=== PATIENT | male | born 1950 | race Hispanic/Latino ===

== ENCOUNTER → 2017-03-25 | Outpatient (CLI) | payer MEDICARE | END | disposition home or self-care (01) | LOC: SHCH 09:24 | PROVIDERS: ATTEND Internal Medicine Cardiovascular Disease | DX: I20.9 Angina pectoris, unspecified (principal) | CPT/HCPCS: 93306 ==

== ENCOUNTER → 2017-04-15 | Outpatient (CLI) | payer MEDICARE | LOC: RAH 08:59 | PROVIDERS: ATTEND Internal Medicine Cardiovascular Disease | DX: I10 Essential (primary) hypertension (principal) | CPT/HCPCS: 78452; 93017; A9500 ×2 ==

== ENCOUNTER → 2017-06-04 | Outpatient (CLI) | payer MEDICARE | END | disposition home or self-care (01) | LOC: SHCH 13:58 | PROVIDERS: ATTEND Internal Medicine Cardiovascular Disease | DX: I87.2 Venous insufficiency (chronic) (peripheral) (principal) | CPT/HCPCS: 93970 ==

== ENCOUNTER → 2018-05-31 | Outpatient (CLI) | payer MEDICARE | END | disposition home or self-care (01) | LOC: RAH 15:43 | PROVIDERS: ATTEND Internal Medicine | DX: I27.20 Pulmonary hypertension, unspecified (principal); M47.815 Spondylosis without myelopathy or radiculopathy, thoracolumbar region | CPT/HCPCS: 71046 ==

== ENCOUNTER → 2018-06-02 | Outpatient (CLI) | payer MEDICARE ==
[~2018-06-02] MED LIST: ALBUTEROL SULFATE 0.083% 2.5 MG/3 ML INH IH ONE
== END | disposition home or self-care (01) ==
LOC: RESP 09:50
PROVIDERS: ATTEND Internal Medicine
DX: R06.09 Other forms of dyspnea (principal); Z87.891 Personal history of nicotine dependence
CPT/HCPCS: 94060; 94727; 94729

== ENCOUNTER → 2018-06-10 | Outpatient (CLI) | payer MEDICARE ==
[~2018-06-10] MED LIST changes: -ALBUTEROL SULFATE 0.083% 2.5 MG/3 ML INH IH ONE; +IOHEXOL-350 50ML VIAL IV ONE
== END | disposition home or self-care (01) ==
LOC: RAH 06-09 09:56
PROVIDERS: ATTEND Internal Medicine
DX: R91.1 Solitary pulmonary nodule (principal); M47.815 Spondylosis without myelopathy or radiculopathy, thoracolumbar region
CPT/HCPCS: 71260; Q9967

== ENCOUNTER → 2020-10-05 | Outpatient (CLI) | payer OTHER, MEDICARE | END | disposition home or self-care (01) | LOC: SHCH 14:53 | PROVIDERS: ATTEND Internal Medicine Cardiovascular Disease | DX: I48.3 Typical atrial flutter (principal); I10 Essential (primary) hypertension; E78.5 Hyperlipidemia, unspecified; E11.9 Type 2 diabetes mellitus without complications; R55 Syncope and collapse | CPT/HCPCS: 93306; 93356 ==

== ENCOUNTER 2020-10-31 09:29 | Day surgery (SDC) | payer OTHER, MEDICARE ==
[2020-10-30 13:13] LABS: BASOPHILS % (AUTO) 0.7 % (0.0-5.0); EOSINOPHILS % (AUTO) 3.4 % (0.0-8.0); HEMATOCRIT 46.4 % (42-54); LYMPHOCYTES % (AUTO) 45.7 % (21.0-51.0); MEAN CORPUSCULAR HEMOGLOBIN 28.9 pg (27.0-33.0); MEAN CORPUSCULAR VOLUME 87.7 fL (79-99); MONOCYTES % (AUTO) 6.7 % (3.0-13.0); NEUTROPHILS % (AUTO) 43.2 % (40.0-77.0); PLATELET COUNT (AUTO) 203 K/uL (130-400); RED BLOOD CELL COUNT(AUTO) 5.29 MIL/uL (4.50-6.20); RED CELL DISTRIBUTION WIDTH 13.1 % (11.0-15.5); WHITE BLOOD COUNT (AUTO) 6.2 K/uL (4.8-10.8)
[2020-10-30 13:21] LABS: CREATININE 1.3 mg/dL (0.5-1.5); POTASSIUM 4.3 mmol/L (3.5-5.1)
[2020-10-30 13:23] LABS: INR 0.95 (0.85-1.15); PROTHROMBIN TIME 10.4 SEC (9.6-11.6)
[2020-10-30 13:24] LABS: PARTIAL THROMBOPLASTIN TIME 25.1 SEC (26.3-35.5)
[2020-10-30 14:02] LABS: APPEARANCE,URINE Clear (CLEAR); BILIRUBIN,URINE Negative (NEGATIVE); COLOR,URINE Dark Yellow (YELLOW); GLUCOSE, URINE (UA) >=1000 mg/dL (NEGATIVE); KETONES,URINE Negative (NEGATIVE); LEUKOCYTE ESTERASE ,URINE Negative (NEGATIVE); NITRATE,URINE Negative (NEGATIVE); OCCULT BLOOD,URINE Negative (NEGATIVE); PROTEIN,URINE Negative (NEGATIVE); UROBILINOGEN,URINE 0.2 mg/dL (0.2-1.0)
[2020-10-30 14:25] LABS: BACTERIA,URINE Rare /HPF (None Seen); RBC,URINE None Seen /HPF (0-1); SQUAMOUS EPITHELIAL CELL,UR 0-2 /HPF (0-2); WBC,URINE None Seen /HPF (0-1)
[2020-10-30 16:55] VITALS: BP 139/79
[~2020-10-31] VITALS: Ht 172.7 cm; Wt 94.6 kg
[2020-10-31] VITALS (10 sets, daily range): BP systolic 128–156; BP diastolic 65–93
[~2020-10-31 09:29] MED LIST changes: +0.9%NACL 1000ML 1,000 ML IV SCH; +APIX5TAB PO; +BYDUREON SQ; +DIGE1TAB PO; +DILT120C92 PO; +EMPA25TA PO; +ESOMEPRAZOLE PO; +EVOL140S2 SQ; +FAMO20TA8 PO; +GLIP5TAB11 PO; -IOHEXOL-350 50ML VIAL IV ONE; +KRIL1CAP19 PO; +LIDOCAINE TP; +MAGNESIUM CITRATE PO; +METF-445 PO; +METO-391 PO; +MVIT PO; +NITR0.4T50 SL; +PREG50 PO; +TURMERIC PO; +VITA-395 PO; +VITA1CAP85 PO; +VITAMIN D2 PO
[2020-10-31] MEDS ORDERED: MIDAZOLAM HCL 1 MG/ML 2ML VIAL ONE (13:52)
[2020-10-31] MEDS ORDERED: FENTANYL CITRATE PF 50 MCG/1 ML 2ML VIAL ONE (13:52)
[2020-10-31] MEDS ORDERED: HEPARIN 10,000 UNIT/10ML (1,000 UNIT/ML) VIAL ONE (13:52)
[2020-10-31] MEDS ORDERED: NITROGLYCERIN 2 MG VIAL IV ONE (13:52)
[2020-10-31] MEDS ORDERED: LIDOCAINE HCL 400MG/20ML VIAL ONE (13:52)
[2020-10-31] MEDS ORDERED: IOHEXOL 350 MG/ML 100ML INFUS..BTL IV ONE (13:53)
[2020-10-31] MEDS ORDERED: IOHEXOL-350 50ML VIAL IV ONE (13:53)
[2020-10-31] MEDS ORDERED: GLUCAGON 1MG KIT 1 MG ML IM PRN (15:00)
[2020-10-31] MEDS ORDERED: ACETAMINOPHEN WITH CODEINE 1 TAB TAB PO PRN (15:00)
[2020-10-31] MEDS ORDERED: 0.9%NACL 1000ML 1,000 ML IV SCH (15:00)
[2020-10-31] MEDS ORDERED: DEXTROSE 50%-WATER 50 ML DISP.SYRIN IV PRN (15:00)
[2020-10-31] MEDS ORDERED: INSULIN HUMULIN R 100 UNIT/ML 3ML SQ SCH (16:30)
== END 2020-10-31 18:30 | disposition home or self-care (01) ==
LOC: DAH 09:29
PROVIDERS: ATTEND Internal Medicine Cardiovascular Disease
DX: I25.110 Atherosclerotic heart disease of native coronary artery with unstable angina pectoris (principal); I11.0 Hypertensive heart disease with heart failure; I50.32 Chronic diastolic (congestive) heart failure; E78.5 Hyperlipidemia, unspecified; E11.9 Type 2 diabetes mellitus without complications; K21.9 Gastro-esophageal reflux disease without esophagitis; I48.91 Unspecified atrial fibrillation; I87.2 Venous insufficiency (chronic) (peripheral); I48.92 Unspecified atrial flutter; Z79.01 Long term (current) use of anticoagulants; Z79.899 Other long term (current) drug therapy; Z95.5 Presence of coronary angioplasty implant and graft; Z95.2 Presence of prosthetic heart valve; Z72.89 Other problems related to lifestyle; Z82.49 Family history of ischemic heart disease and other diseases of the circulatory system
CPT/HCPCS: 36415; 71045; 80048; 81001; 82948 ×2; 85025; 85610; 85730; 93005; 93458; A4215; A4216; A4221; A4222; A4223 ×3; A4606; A4663; C1760; C1894 ×2; J1644; J3490 ×2; J7030; Q9965; Q9967 ×2; J2250; J3010

== ENCOUNTER 2020-12-19 06:48 | Day surgery (SDC) | payer OTHER, MEDICARE ==
[2020-12-13 16:44] LABS: BASOPHILS % (AUTO) 0.4 % (0.0-5.0); EOSINOPHILS % (AUTO) 2.7 % (0.0-8.0); HEMATOCRIT 46.4 % (42-54); LYMPHOCYTES % (AUTO) 43.6 % (21.0-51.0); MEAN CORPUSCULAR HEMOGLOBIN 29.4 pg (27.0-33.0); MEAN CORPUSCULAR VOLUME 89.1 fL (79-99); MONOCYTES % (AUTO) 8.1 % (3.0-13.0); NEUTROPHILS % (AUTO) 44.9 % (40.0-77.0); PLATELET COUNT (AUTO) 182 K/uL (130-400); RED BLOOD CELL COUNT(AUTO) 5.21 MIL/uL (4.50-6.20); RED CELL DISTRIBUTION WIDTH 14.1 % (11.0-15.5); WHITE BLOOD COUNT (AUTO) 6.8 K/uL (4.8-10.8)
[2020-12-13 17:04] LABS: CREATININE 1.1 mg/dL (0.5-1.5); POTASSIUM 4.3 mmol/L (3.5-5.1)
[2020-12-13 17:05] LABS: INR 0.97 (0.85-1.15); PROTHROMBIN TIME 10.6 SEC (9.6-11.6)
[2020-12-13 17:07] LABS: PARTIAL THROMBOPLASTIN TIME 26.8 SEC (26.3-35.5)
[2020-12-19] VITALS (16 sets, daily range): BP systolic 78–141; BP diastolic 53–90
[~2020-12-19] VITALS: Ht 172.7 cm; Wt 95.6 kg
[~2020-12-19 06:48] MED LIST changes: +0.9% NACL 500ML IV.SOLN 500 ML IV SCH; -0.9%NACL 1000ML 1,000 ML IV SCH; +AMYL1CAP61 PO; -DIGE1TAB PO; -DILT120C92 PO; +DRON400T7 PO; +ESOM40CA PO; -ESOMEPRAZOLE PO; -FAMO20TA8 PO; -KRIL1CAP19 PO; +LACT1CAP81 PO; -LIDOCAINE TP; -METO-391 PO; +METO-409 PO; -NITR0.4T50 SL; -PREG50 PO; -VITA-395 PO; -VITAMIN D2 PO; +bydureon SQ
[2020-12-19] MEDS ORDERED: LIDOCAINE PF 100MG/5ML (2%) SYRINGE 5ML ONE (08:36)
[2020-12-19] MEDS ORDERED: PROPOFOL 10 MG/ML 20ML VIAL IV ONE (08:37)
[2020-12-19] MEDS ORDERED: METO-409 PO (09:46)
== END 2020-12-19 10:00 | disposition home or self-care (01) ==
LOC: DAH 06:48
PROVIDERS: ATTEND Internal Medicine Cardiovascular Disease
DX: I48.4 Atypical atrial flutter (principal); I48.19 Other persistent atrial fibrillation; I25.10 Atherosclerotic heart disease of native coronary artery without angina pectoris; I10 Essential (primary) hypertension; E11.9 Type 2 diabetes mellitus without complications; E78.5 Hyperlipidemia, unspecified; I87.2 Venous insufficiency (chronic) (peripheral); K21.9 Gastro-esophageal reflux disease without esophagitis; Z79.01 Long term (current) use of anticoagulants; Z95.5 Presence of coronary angioplasty implant and graft; Z98.890 Other specified postprocedural states; Z79.84 Long term (current) use of oral hypoglycemic drugs; Z79.899 Other long term (current) drug therapy; Z82.49 Family history of ischemic heart disease and other diseases of the circulatory system; Z80.9 Family history of malignant neoplasm, unspecified; Z72.89 Other problems related to lifestyle; Z87.891 Personal history of nicotine dependence
CPT/HCPCS: 36415; 80048; 82948; 85025; 85610; 85730; 92960; 93005 ×2; A4215; A4216; A4221; A4222; A4223 ×3; A4606; A4663; J2001; J2704; 99156; 99157

== ENCOUNTER → 2021-05-30 | Outpatient (CLI) | payer OTHER, MEDICARE ==
[~2021-05-30] MED LIST changes: -0.9% NACL 500ML IV.SOLN 500 ML IV SCH
== END | disposition home or self-care (01) ==
LOC: SHCH 10:40
PROVIDERS: ATTEND Internal Medicine Cardiovascular Disease
DX: I08.0 Rheumatic disorders of both mitral and aortic valves (principal); I48.4 Atypical atrial flutter; I11.9 Hypertensive heart disease without heart failure; I25.10 Atherosclerotic heart disease of native coronary artery without angina pectoris; E11.9 Type 2 diabetes mellitus without complications; E78.5 Hyperlipidemia, unspecified; Z95.5 Presence of coronary angioplasty implant and graft
CPT/HCPCS: 93306

== ENCOUNTER → 2021-09-17 | Outpatient (CLI) | payer OTHER, MEDICARE | END | disposition home or self-care (01) | LOC: LAB 14:32 | PROVIDERS: ATTEND Internal Medicine | DX: M47.815 Spondylosis without myelopathy or radiculopathy, thoracolumbar region (principal); R06.00 Dyspnea, unspecified | CPT/HCPCS: 71046 ==

== ENCOUNTER → 2022-04-14 | Outpatient (CLI) | payer OTHER, MEDICARE | END | disposition home or self-care (01) | LOC: RAH 10:37 | PROVIDERS: ATTEND Internal Medicine | DX: N32.89 Other specified disorders of bladder (principal); R33.9 Retention of urine, unspecified | CPT/HCPCS: 76770 ==

== ENCOUNTER → 2023-01-19 | Outpatient (CLI) | payer OTHER, MEDICARE ==
[~2023-01-19] MED LIST changes: -GLIP5TAB11 PO; +GLIP5TAB15 PO
== END | disposition home or self-care (01) ==
LOC: SHCH 08:38
PROVIDERS: ATTEND Internal Medicine Cardiovascular Disease
DX: I87.2 Venous insufficiency (chronic) (peripheral) (principal)
CPT/HCPCS: 93970